=== PATIENT | male | born 1960 | race Caucasian/White ===

== ENCOUNTER 2022-08-07 09:17 | Outpatient (CLI) | payer BC, SELFPAY ==
--- NOTE | ~2022-08-07 | US_ITS ---
US abdomen limited INDICATION: Elevated liver function tests. PROCEDURE: Realtime right upper abdominal ultrasound. COMPARISON: No prior studies for comparison. FINDINGS: The pancreas is normal without focal mass or pancreatic ductal dilation. Liver echotexture is diffusely increased consistent with fatty infiltration. There is a liver cyst measuring 2.3 cm ma ximum dimension. There is normal directional flow in the portal vein. The gallbladder is normal without stones, gallbladder wall thickening or pericholecystic fluid. Comm on bile duct measures 4 mm. No sonographic Beth's sign. IMPRESSION: 1: Liver cyst measuring 2.3 cm maximum dimension. 2: Hepatic steatosis. Reviewed, dictated and finalized at location A. [employer]
== END 2022-08-07 09:18 | disposition home or self-care (01) ==
LOC: ANHIMG 09:21
PROVIDERS: PCP Family Medicine; Visit Provider Nurse Practitioner Family
DX: R74.01 Elevation of levels of liver transaminase levels (principal); Z68.34 Body mass index [BMI] 34.0-34.9, adult; K76.89 Other specified diseases of liver; K76.0 Fatty (change of) liver, not elsewhere classified
CPT/HCPCS: 76705

== ENCOUNTER 2025-05-08 14:25 | Inpatient (IN) | payer MEDICARE, OTHER, SELFPAY ==
[2025-05-08] VITALS (16 sets, daily range): BP systolic 82–140; BP diastolic 53–86; PULSE 66–91; RESP 12–20; TEMP 36.1–36.7; O2SAT 92–100; BMI 34.6
--- NOTE | ~2025-05-08 | CT_ITS ---
EXAMINATION: CT abdomen pelvis w con, 05/08/2025 16:30 CDT HISTORY: suspected strangulated hernia COMPARISON: No comparisons available. TECHNIQUE: CT scan of the abdomen and pelvis was performed with contrast. Isovue 300, 92cc injected IV. One or more of the following dose reduction techniques were used: automated exposure control, adjustment of the mA and/or kV according to patient size, use of iterative reconstruction technique. Unless otherwise stated, incidental findings do not require dedicated follow up imaging FINDINGS: CT abdomen: LUNG BASES: Calcified subcarinal and hilar lymph nodes in the visualized lung bases. LIVER: Minimal hepatic steatosis. Subcentimeter probable liver cysts. The main portal vein is patent. There is no intrahepatic biliary ductal dilatation. SPLEEN: Unremarkable, no splenomegaly. KIDNEYS: The largest level 3 x 3 mm, no hydronephrosis. Right Kidney: Right kidney renal calculi noted. Left Kidney: Left kidney simple-appearing renal cysts are also all 5 x 6 cm. ADRENAL GLANDS: Unremarkable. PANCREAS: Unremarkable. GALLBLADDER/BILIARY: Gallbladder appears contracted. STOMACH AND ESOPHAGUS: The stomach is decompressed. BOWEL/MESENTERY: There is thickening of the sigmoid colon without inflammatory changes noted along the left lateral aspect with no perforation or abscess. The remaining large bowel demonstrates moderate fecal content with diverticulosis. Appendix not identified. There are fluid-filled loops of small bowel with some minimally dilated small bowel loops adjacent to the anterior abdominal wall, The largest measuring 3.2 cm. ADENOPATHY/RETROPERITONEUM: No lymphadenopathy. AORTA/VASCULATURE: Normal caliber aorta. FREE FLUID OR FREE AIR: Trace free fluid.. CT pelvis: SOLID ORGANS/REPRODUCTIVE: Prostate enlarged with a heterogeneous appearance, correlate with PSA and prostate ultrasound. BLADDER: Within normal limits. OSSEOUS STRUCTURES: Moderate degenerative changes lumbar spine. No sclerotic or lytic lesions. OVERLYING SOFT TISSUES: There is an umbilical hernia containing multiple small bowel loops with fluid noted in the hernia sac although there is no gross bowel wall thickening, tiny area 1 mm of lucency noted, this is too small to characterize however minimal pneumatosis images difficult to exclude, the Defect in the abdominal wall 1 cm. There is a small fat-containing right inguinal hernia. Moderate fat-containing left inguinal hernia. IMPRESSION: 1. Acute diverticulitis. There is no perforation or abscess. 2. Ventral hernia containing small bowel and small amount of fluid and a tiny questionable area of pneumatosis. Correlation for early incarceration is recommended. There are some mildly dilated proximal small bowel loops within the abdomen, early small bowel obstruction is not excluded. 3. Incidental findings above Reviewed, dictated and finalized at location A. IMPRESSION: 1. Acute diverticulitis. There is no perforation or abscess. 2. Ventral hernia containing small bowel and small amount of fluid and a tiny q uestionable area of pneumatosis. Correlation for early incarceration is recomme nded. There are some mildly dilated proximal small bowel loops within the abdom en, early small bowel obstruction is not excluded. 3. Incidental findings above
--- NOTE | 2025-05-08 15:46 | ED_ITS ---
HPI - Abdominal Pain General Chief Complaint: Abdominal Pain Stated Complaint: abd. pain for several months Time Seen by Provider: 05/08/25 15:37 History of Present Illness HPI narrative: This is a 65-year-old male with history of hypertension, hyperlipidemia, ruptured appendicitis complicated by gangrene and subsequent partial colectomy who presents to the ED for abdominal pain. Patient states that for the past several years, he has been with a hernia. He is currently scheduled to have this evaluated the CT and by a surgeon. He states that earlier today, he had a hard bowel which strain. At about 10:30 a.m., he began to have hardening of the hernia and some skin changes and has had worsening pain since then. Related Data Home Medications ?Medication ?Instructions ?Recorded ?Confirmed ?Last Taken ?Type coenzyme Q10 10 mg capsule (Co 10 mg PO ONCE 06/17/23 05/08/25 Unknown History Q-10) magnesium 200 mg tablet 200 mg PO DAILY 06/17/23 Unknown History Allergies Allergy/AdvReac Type Severity Reaction Status Date / Time No Known Allergies Allergy Unknown Verified 05/08/25 17:33 Review of Systems 2 Review of Systems: Gen.: Denies fevers or chills Eyes: Denies eye pain or visual change ENT: Denies congestion Respiratory: Denies shortness of breath or cough CV: Denies chest pain or palpitations GI: As per HPI denies burning, urgency, frequency or hematuria Musculoskeletal: Denies back pain or muscle pain Neuro: Denies numbness, tingling, weakness or focal weakness Skin: Denies rash Except as documented, all other systems reviewed and negative [facility] Past Medical History Medical History (Updated 05/08/25 @ 19:24 by Glenn Fuentes MD) Screening PSA (prostate specific antigen) Screening for thyroid disorder Irregular heart beat CAROL (obstructive sleep apnea) needs to be tested Hypertension Hyperlipidemia Colon cancer screening Surgical History Surgical History (Updated 05/08/25 @ 17:35 by Jameel Morel DO) History of appendectomy Family History Family History Father Hypertension Family history of coronary artery disease Mother Hypertension Diabetes mellitus Cerebrovascular accident Grandparent Hypertension Cerebrovascular accident Sibling Rheumatoid arthritis Hypertension Hyperlipidemia Other Family history of lung cancer Social History Social History Smoking packs per day: 0.75 Smoking cigarettes per day: 15.0 Years smoked: 40 Smoking pack-years: 30.00 Smoking status: Former smoker Tobacco type: cigarettes Second hand tobacco smoke exposure: Yes Alcohol intake: current Drinks per week: 10 Substance use: never Substance use type: does not use Do You Feel Safe in your Home?: Yes Lack of Transportation: No Lack of Food: Never True Current Housing: I Have Housing Concerned About Future Housing: No Difficulty Paying Gas/Electric Bills: No Difficulty Paying for Meds: No Currently Unemployed: No Education: High School Diploma/GED Difficulty w/ Childcare or Family Care: No Living arrangements: with family Occupation/Education: retired 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 CARDIOVASCULAR: Regular rate and rhythm without murmurs rubs or gallops. ABDOMINAL: Umbilical hernia with blackened overlying skin changes, significant firmness and tenderness to palpation MUSCULOSKELETAL: Moves all extremities. No clubbing, cyanosis or edema. NEURO: Awake and alert. Following commands, speech normal, no focal deficits SKIN:: Warm, dry. No rashes lesions or abrasions PSYCHIATRIC: Normal affect/mood, Course Vital Signs Vital signs: Vital Signs Temperature 97.9 F 05/08/25 14:40 Pulse Rate 89 05/08/25 14:40 Respiratory Rate 16 05/08/25 14:40 Blood Pressure 140/84 05/08/25 14:40 Pulse Oximetry 98 05/08/25 14:40 Oxygen Delivery Room Air 05/08/25 14:40 Temperature 98.0 F 05/08/25 18:42 Pulse Rate 88 05/08/25 19:15 Respiratory Rate 16 05/08/25 19:15 Blood Pressure 103/61 05/08/25 19:15 Pulse Oximetry 96 05/08/25 19:15 Oxygen Delivery Room Air 05/08/25 19:15 Oxygen Flow Rate 10 05/08/25 19:00 MDM - Abdominal Pain MDM Narrative Medical decision making narrative: 65-year-old male with history of complicated appendectomy who presented to the ED for abdominal. On initial evaluation, patient did have a umbilical hernia with just a appearing scan concerning for a strangulated hernia. Leukocytosis at 13.5. I discussed case with surgery, Dr. Morel agrees that this does clinically sound like a strangulated hernia normal humeral prep the OR awaiting the CT results. CT on my evaluation did show he hernia with small contained concerning for strangulation. Patient was taken to OR and in otherwise stable condition. Differential Diagnosis Differential diagnosis: Likely other (strangulated vs incarcerated hernia, cellulitis) Medical Records Attestation: I reviewed the patient's medical records. Lab Data Attestation: I reviewed the patient's lab results. 05/08/25 15:43 05/08/25 15:43 Labs: Lab Results 05/08/25 05/08/25 Range/Units 15:43 16:02 WBC 13.5 H (4.5-10.0) K/mm3 RBC 5.51 (4.6-6.20) M/mm3 Hgb 15.5 (14.0-18.0) g/dL Hct 46.1 (42.0-52.0) % MCV 83.7 (80-100) fl MCH 28.1 (26-34) pg MCHC 33.6 (32-36) g/dl RDW 13.5 (11.5-14.5) % Plt Count 190 (150-375) k/mm3 MPV 10.4 (7.4-10.4) fl Immature Gran % (Auto) 0.4 (0-0.5) % Neut % (Auto) 61.4 (45.5-73.1) % Lymph % (Auto) 24.8 (18.3-44.2) % [place] % (Auto) 12.1 H (2.6-8.5) % Eos % (Auto) 1.0 (0-4.4) % Baso % (Auto) 0.3 (0.2-1.2) % Lymph # (Auto) 3.35 H (0.9-3.2) K/mm3 [place] # (Auto) 1.6 H (0.1-0.6) K/mm3 Eos # (Auto) 0.1 (0-0.3) K/mm3 Baso # (Auto) 0.0 (0.0-0.1) K/mm3 Abs Immat Gran (auto) 0.05 H (0.00-0.031) K/mm3 Absolute Neuts (auto) 8.3 H (1.3-6.7) K/mm3 Absolute Nucleated RBC 0.000 (0.0-0.012) K/mm3 Nucleated RBC % 0.0 (0.0-0.2) % Sodium 136 L (137-145) mmol/L Potassium 3.4 (3.4-5.0) mmol/L Chloride 101 (98-107) mmol/L Carbon Dioxide 24 (22-30) mmol/L Anion Gap 11 (4-12) mmol/L BUN 23 H (9-20) mg/dL Creatinine 0.91 (0.7-1.3) mg/dL Estim Creat Clear Calc Not Reportable Estimated GFR > 60 (59 - ) Glucose 128 H (65-110) mg/dL Calcium 9.6 (8.4-10.2) mg/dL Total Bilirubin 1.1 (0.2-1.3) mg/dL AST 28 (17-59) U/L ALT 24 (6-50) U/L Alkaline Phosphatase 63 (38-126) U/L Total Protein 7.7 (6.3-8.2) g/dL Albumin 4.4 (3.5-5.1) g/dL Lipase 62 (23-300) U/L Urine Color Yellow (Yellow) Urine Appearance Cloudy H (Clear) Urine pH 6.0 (5.0-9.0) Ur Specific [place] 1.023 (1.001-1.035) Urine Protein Negative (Negative) mg/dL Urine Glucose (UA) Negative (Negative) mg/dL Urine Ketones Trace H (Negative) mg/dL Ur Blood (Man) Negative (Negative) Urine Nitrate Negative (Negative) Urine Bilirubin Negative (Negative) Urine Urobilinogen 0.2 (<2.0) mg/dL Leukocyte Esterase Rfl Trace H (Negative) PITO/UL Urine RBC 0-2 (0-2) /hpf Urine WBC 0-5 (0-3) /hpf Ur Squamous Epith Cells None seen (Few) /hpf Urine Bacteria None seen /hpf Urine Casts 0-2 Imaging Data Radiologist's impression: ITS Impressions Abdomen/Pelvis CT 05/08/25 16:51 IMPRESSION: 1. Acute diverticulitis. There is no perforation or abscess. 2. Ventral hernia containing small bowel and small amount of fluid and a tiny questionable area of pneumatosis. Correlation for early incarceration is recommended. There are some mildly dilated proximal small bowel loops within the abdomen, early small bowel obstruction is not excluded. 3. Incidental findings above Discharge Plan Discharge Clinical Impression: Strangulated umbilical hernia Patient Disposition: Still a Patient Condition: Serious
[2025-05-08 15:51] LABS: Hematocrit 46.1 % (42.0-52.0); Hemoglobin 15.5 g/dL (14.0-18.0); Immature Granulocyte Percent A 0.4 % (0-0.5); Lymphocytes Absolute Auto 3.35 K/mm3 (0.9-3.2); Mean Corpuscular HGB Conc 33.6 g/dl (32-36); Mean Corpuscular Hemoglobin 28.1 pg (26-34); Mean Corpuscular Volume 83.7 fl (80-100); Nucleated Red Blood Cells Absolute Auto 0.000 K/mm3 (0.0-0.012); Nucleated Red Blood Cells Perc 0.0 % (0.0-0.2); Platelet Count Result 190 k/mm3 (150-375); Red Blood Count 5.51 M/mm3 (4.6-6.20); White Blood Count 13.5 K/mm3 (4.5-10.0)
[2025-05-08] MEDS: ONDANSETRON INJ 4 MG/2 ML VIAL IV PUSH (15:55)
[2025-05-08] MEDS: HYDROmorphone HCL INJ (*CRX) 1 MG/ML SYR 0.5 MG IV PUSH ×2 (15:55→16:28)
[2025-05-08] MEDS: SODIUM CHLORIDE 0.9% IV 1,000 ML 999 ML IV CONT (15:56)
[2025-05-08 16:04] LABS: Alanine Aminotransferase 24 U/L (6-50); Albumin Level 4.4 g/dL (3.5-5.1); Alkaline Phosphatase 63 U/L (38-126); Anion Gap 11 mmol/L (4-12); Aspartate Amino Transferase 28 U/L (17-59); Bilirubin,Total 1.1 mg/dL (0.2-1.3); Blood Urea Nitrogen 23 mg/dL (9-20); Calcium 9.6 mg/dL (8.4-10.2); Carbon Dioxide 24 mmol/L (22-30); Chloride 101 mmol/L (98-107); Estimated Glomerular Filt Rate > 60; Glucose 128 mg/dL (65-110); Lipase 62 U/L (23-300); Potassium 3.4 mmol/L (3.4-5.0); Sodium 136 mmol/L (137-145); Total Protein 7.7 g/dL (6.3-8.2)
[2025-05-08 16:12] LABS: Add Urine Microscopic? YES; Appearance Urine Cloudy (Clear); Glucose Urine UA Negative (Negative); Leukocyte Esterase Ur Trace LEU/UL (Negative); Nitrate Urine Negative (Negative); Non Pathogenic Casts 0-2; Specific Grav Ur 1.023 (1.001-1.035)
--- NOTE | 2025-05-08 17:10 | P.PNAN_ITS ---
Anes - Initial Pre Proc Eval Procedure: Operation Date: 05/08/25 17:30 Proposed Procedures p Open Incarcerated Hernia Repair, Possible Small Bowel Resection - Jameel Morel DO Date/Time: 05/08/25 17:10 Surgeon: Jameel Morel DO Pre Op Diagnosis: abd. pain for several months Patient Data Age: 65 Gender: M Height: Weight: 112.1 kg Last Vital Signs Temp 36.5 C 05/08/25 15:29 Pulse 89 05/08/25 16:56 Resp 17 05/08/25 16:56 BP 119/78 05/08/25 16:56 Pulse Ox 97 05/08/25 16:56 O2 Del Method Room Air 05/08/25 14:40 Allergies Allergy/AdvReac Type Severity Reaction Status Date / Time No Known Allergies Allergy Unknown Verified 05/08/25 15:42 Home Medications ?Medication ?Instructions ?Recorded ?Confirmed ?Type aspirin 81 mg tablet,delayed 81 mg PO DAILY #1 tablet 05/21/22 04/25/25 Rx release nujzfetd-rpz-hhnhp 200 mcg-lycop 1 tablet PO DAILY #1 tablet 05/21/22 04/25/25 Rx 175 mcg-lutei 250 mcg-herb 178 tablet (Sang Multivitamin For Men) omega-3 fatty acids 500 mg capsule 500 mg PO DAILY #1 cap 05/21/22 04/25/25 Rx coenzyme Q10 10 mg capsule (Co 10 mg PO ONCE 06/17/23 04/25/25 History Q-10) magnesium 200 mg tablet 200 mg PO DAILY 06/17/23 History hydrochlorothiazide 25 mg tablet 25 mg PO DAILY #90 ta bs 01/28/25 04/25/25 Rx losartan 50 mg tablet See Rx Instructions .Route 0 02/02/25 04/25/25 Rx .COMPLEX #180 tabs metoprolol succinate 50 mg See Rx Instructions .Route 04/25/25 04/25/25 Rx tablet,extended release 24 hr .COMPLEX #180 tabs rosuvastatin 10 mg tablet See Rx Instructions .Route 0 04/25/25 04/25/25 Rx .COMPLEX #90 tabs Laboratory Tests 05/08/25 05/08/25 15:43 16:02 WBC 13.5 H K/mm3 (4.5-10.0) RBC 5.51 M/mm3 (4.6-6.20) Hgb 15.5 g/dL (14.0-18.0) Hct 46.1 % (42.0-52.0) MCV 83.7 fl (80-100) MCH 28.1 pg (26-34) MCHC 33.6 g/dl (32-36) RDW 13.5 % (11.5-14.5) Plt Count 190 k/mm3 (150-375) MPV 10.4 fl (7.4-10.4) Immature Gran % (Auto) 0.4 % (0-0.5) Neut % (Auto) 61.4 % (45.5-73.1) Lymph % (Auto) 24.8 % (18.3-44.2) [place] % (Auto) 12.1 H % (2.6-8.5) Eos % (Auto) 1.0 % (0-4.4) Baso % (Auto) 0.3 % (0.2-1.2) Lymph # (Auto) 3.35 H K/mm3 (0.9-3.2) [place] # (Auto) 1.6 H K/mm3 (0.1-0.6) Eos # (Auto) 0.1 K/mm3 (0-0.3) Baso # (Auto) 0.0 K/mm3 (0.0-0.1) Abs Immat Gran (auto) 0.05 H K/mm3 (0.00-0.031) Absolute Neuts (auto) 8.3 H K/mm3 (1.3-6.7) Absolute Nucleated RBC 0.000 K/mm3 (0.0-0.012) Nucleated RBC % 0.0 % (0.0-0.2) Sodium 136 L mmol/L (137-145) Potassium 3.4 mmol/L (3.4-5.0) Chloride 101 mmol/L (98-107) Carbon Dioxide 24 mmol/L (22-30) Anion Gap 11 mmol/L (4-12) BUN 23 H mg/dL (9-20) Creatinine 0.91 mg/dL (0.7-1.3) Estim Creat Clear Calc Not Reportable Estimated GFR > 60 (59 - ) Glucose 128 H mg/dL (65-110) Calcium 9.6 mg/dL (8.4-10.2) Total Bilirubin 1.1 mg/dL (0.2-1.3) AST 28 U/L (17-59) ALT 24 U/L (6-50) Alkaline Phosphatase 63 U/L (38-126) Total Protein 7.7 g/dL (6.3-8.2) Albumin 4.4 g/dL (3.5-5.1) Lipase 62 U/L (23-300) Urine Color Yellow (Yellow) Urine Appearance Cloudy H (Clear) Urine pH 6.0 (5.0-9.0) Ur Specific [place] 1.023 (1.001-1.035) Urine Protein Negative mg/dL (Negative) Urine Glucose (UA) Negative mg/dL (Negative) Urine Ketones Trace H mg/dL (Negative) Ur Blood (Man) Negative (Negative) Urine Nitrate Negative (Negative) Urine Bilirubin Negative (Negative) Urine Urobilinogen 0.2 mg/dL (<2.0) Leukocyte Esterase Rfl Trace H PITO/UL (Negative) Urine RBC 0-2 /hpf (0-2) Urine WBC 0-5 /hpf (0-3) Ur Squamous Epith Cells None seen /hpf (Few) Urine Bacteria None seen /hpf Urine Casts 0-2 Patient hx anesthesia problems: none Family hx anesthesia problems: none Results Review: All pre-operative results and documents have been reviewed as part of the pre- operative evaluation. [facility] Past Medical History Medical History Screening PSA (prostate specific antigen) Screening for thyroid disorder Irregular heart beat CAROL (obstructive sleep apnea) needs to be tested Hypertension Hyperlipidemia Colon cancer screening Surgical History Surgical History History of colon resection History of appendectomy Family History Family History Father Hypertension Family history of coronary artery disease Mother Hypertension Diabetes mellitus Cerebrovascular accident Grandparent Hypertension Cerebrovascular accident Sibling Rheumatoid arthritis Hypertension Hyperlipidemia Other Family history of lung cancer Social History Social History Smoking packs per day: 0.75 Smoking cigarettes per day: 15.0 Years smoked: 40 Smoking pack-years: 30.00 Smoking status: Former smoker Tobacco type: cigarettes Second hand tobacco smoke exposure: Yes Alcohol intake: current Drinks per week: 10 Substance use: never Substance use type: does not use Do You Feel Safe in your Home?: Yes Lack of Transportation: No Lack of Food: Never True Current Housing: I Have Housing Concerned About Future Housing: No Difficulty Paying Gas/Electric Bills: No Difficulty Paying for Meds: No Currently Unemployed: No Education: High School Diploma/GED Difficulty w/ Childcare or Family Care: No Living arrangements: with family Occupation/Education: retired 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 Informed Consent: The patient's anesthetic plan and its attendant risks and benefits were discussed with the patient/family/POA. Questions were solicited and answers provided to the satisfaction of the patient/family/POA.
--- NOTE | 2025-05-08 17:33 | WPDHPUPDATE1 ---
History and Physical Update Update Date/Time: 05/08/25 17:33 History and Physical has been reviewed, including an updated exam of the patient. There are NO changes in the patient's condition. Risks, benefits, and alternatives have been discussed and questions answered. Patient agrees to proceed with procedure.
--- NOTE | 2025-05-08 17:33 | PM.IMHP ---
H&P: HPI History of Present Illness Date/Time: 05/08/25 17:33 Chief Complaint: Incarcerated umbilical hernia Narrative: This is a 65-year-old man who presented to the emergency department with periumbilical pain. He has a known history of an umbilical hernia and has been causing him more symptoms over the past several weeks. It has always been soft and reducible. This morning it became hard and painful and he was unable to reduce it. He was also experiencing bloating and cramping pain as well as some nausea. Presented to the emergency department this afternoon. CT has been done and is showing evidence of an incarcerated umbilical hernia containing a loop of small bowel. Review of Systems Review of Systems: All systems reviewed & are unremarkable except as noted in HPI and below Constitutional: Constitutional: Denies chills, Denies fever(s), Denies headache(s) and Denies weight loss Eyes: Eyes: Denies change in vision ENT: Denies dizziness, Denies headache(s), Denies neck mass and Denies throat swelling Cardiovascular: Cardiovascular: Denies chest pain, Denies lightheadedness and Denies dyspnea Respiratory: Respiratory: Denies cough, Denies dyspnea and Denies wheezing Gastrointestinal: Gastrointestinal: Reports as per HPI Genitourinary: Genitourinary: Denies hematuria and Denies dysuria Musculoskeletal: Musculoskeletal: Reports as per HPI Integumentary/Breasts: Skin/Breast: Reports as per HPI Neurologic: Denies dizziness and Denies headache(s) Allergic/Immunologic: Allergic/Immunologic: Denies throat swelling and Denies wheezing PMF Past Medical History Medical History (Updated 05/08/25 @ 17:37 by Jameel Morel DO) Screening PSA (prostate specific antigen) Screening for thyroid disorder Irregular heart beat CAROL (obstructive sleep apnea) needs to be tested Hypertension Hyperlipidemia Colon cancer screening Surgical History Surgical History (Updated 05/08/25 @ 17:35 by Jameel Morel DO) History of appendectomy Family History Family History Father Hypertension Family history of coronary artery disease Mother Hypertension Diabetes mellitus Cerebrovascular accident Grandparent Hypertension Cerebrovascular accident Sibling Rheumatoid arthritis Hypertension Hyperlipidemia Other Family history of lung cancer Social History Social History Smoking packs per day: 0.75 Smoking cigarettes per day: 15.0 Years smoked: 40 Smoking pack-years: 30.00 Smoking status: Former smoker Tobacco type: cigarettes Second hand tobacco smoke exposure: Yes Alcohol intake: current Drinks per week: 10 Substance use: never Substance use type: does not use Do You Feel Safe in your Home?: Yes Lack of Transportation: No Lack of Food: Never True Current Housing: I Have Housing Concerned About Future Housing: No Difficulty Paying Gas/Electric Bills: No Difficulty Paying for Meds: No Currently Unemployed: No Education: High School Diploma/GED Difficulty w/ Childcare or Family Care: No Living arrangements: with family Occupation/Education: retired 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[employer] Gender identity (if verbalized by the patient): Male Meds Home Medications and Allergies Home Medications ?Medication ?Instructions ?Recorded ?Confirmed ?Type aspirin 81 mg tablet,delayed 81 mg PO DAILY #1 tablet 05/21/22 05/08/25 Rx release vjryrrpe-wpz-tuzmk 200 mcg-lycop 1 tablet PO DAILY #1 tablet 05/21/22 05/08/25 Rx 175 mcg-lutei 250 mcg-herb 178 tablet (Sang Multivitamin For Men) omega-3 fatty acids 500 mg capsule 500 mg PO DAILY #1 cap 05/21/22 05/08/25 Rx coenzyme Q10 10 mg capsule (Co 10 mg PO ONCE 06/17/23 05/08/25 History Q-10) magnesium 200 mg tablet 200 mg PO DAILY 06/17/23 05/08/25 History hydrochlorothiazide 25 mg tablet 25 mg PO DAILY #90 tabs 01/28/25 05/08/25 Rx losartan 50 mg tablet See Rx Instructions .Route 02/02/25 05/08/25 Rx .COMPLEX #180 tabs metoprolol succinate 50 mg See Rx Instructions .Route 04/25/25 05/08/25 Rx tablet,extended release 24 hr .COMPLEX #180 tabs rosuvastatin 10 mg tablet See Rx Instructions .Route 04/25/25 05/08/25 Rx .COMPLEX #90 tabs Allergies Allergy/AdvReac Type Severity Reaction Status Date / Time No Known Allergies Allergy Unknown Verified 05/08/25 17:33 Vital Signs Vital Signs - 24 hr 05/08/25 14:40 05/08/25 15:29 05/08/25 16:02 Temperature 97.9 F 97.7 F Pulse Rate 89 70 66 Respiratory Rate 16 12 12 Blood Pressure 140/84 96/60 L 116/77 Pulse Oximetry 98 100 99 Oxygen Delivery Room Air 05/08/25 16:56 Temperature Pulse Rate 89 Respiratory Rate 17 Blood Pressure 119/78 Pulse Oximetry 97 Oxygen Delivery Exam Const: General: no acute distress and alert Orientation/consciousness: patient oriented x3 HENMT: Head: normocephalic and atraumatic Ears: hearing grossly normal bilaterally Face/Nose/Sinus: Normal nares present Mouth: Yes Normal oral and palatal mucosa present Eyes: Periorbital: periorbital findings normal Sclera: sclerae normal EOM: EOMs intact bilaterally Neck: Neck: normal visual inspection, no lymphadenopathy and trachea midline Chest: Chest palpation & inspection: normal inspection of the chest Resp: Effort & Inspection: normal respiratory effort Auscultation: clear to auscultation bilaterally Cardio: Jugular venous distension: no JVD Rate: regular rate Rhythm: regular rhythm Heart sounds: S1 normal heart sound present and S2 normal heart sound present Peripheral pulses: Peripheral pulses 2+ throughout GI: Inspection: normal to inspection GI Palp: Yes Soft to palpation, Yes Tenderness to palpation present (GI) (Periumbilical), No Guarding due to palpation present (GI), Yes Hernia present umbilical 3-10 cm (Incarcerated umbilical hernia with skin ecchymosis) and No Rebound tenderness present Percussion: Yes normal to percussion Auscultation: normal bowel sounds : General: Yes no CVA tenderness Back/Spine/Pelvis: Back: no CVA tenderness Neuro: General: patient oriented x3, no focal motor deficits and CN's II-XI intact bilaterally Cognition (Neuro): normal cognition Speech: normal speech Motor exam (neuro): 5/5 motor strength present throughout Extrem: General: capillary refill normal and no clubbing, cyanosis or edema H&P: Results Labs Labs: Short CBC 05/08/25 Range/Units 15:43 WBC 13.5 H (4.5-10.0) K/mm3 Hgb 15.5 (14.0-18.0) g/dL Hct 46.1 (42.0-52.0) % Plt Count 190 (150-375) k/mm3 [facility] 05/08/25 15:43 Sodium 136 L Potassium 3.4 Chloride 101 Carbon Dioxide 24 BUN 23 H Creatinine 0.91 Glucose 128 H Calcium 9.6 Liver Function 05/08/25 Range/Units 15:43 Total Bilirubin 1.1 (0.2-1.3) mg/dL AST 28 (17-59) U/L ALT 24 (6-50) U/L Alkaline Phosphatase 63 (38-126) U/L Albumin 4.4 (3.5-5.1) g/dL Urine 05/08/25 Range/Units 16:02 Urine Color Yellow (Yellow) Urine Appearance Cloudy H (Clear) Urine pH 6.0 (5.0-9.0) Ur Specific [place] 1.023 (1.001-1.035) Urine Protein Negative (Negative) mg/dL Urine Glucose (UA) Negative (Negative) mg/dL Imaging CT scan - abdomen: Radiologist's impression: ITS Impressions Abdomen/Pelvis CT 05/08/25 16:51 IMPRESSION: 1. Acute diverticulitis. There is no perforation or abscess. 2. Ventral hernia containing small bowel and small amount of fluid and a tiny questionable area of pneumatosis. Correlation for early incarceration is recommended. There are some mildly dilated proximal small bowel loops within the abdomen, early small bowel obstruction is not excluded. 3. Incidental findings above Assessment and Plan Assessment and plan (1) Incarcerated umbilical hernia: Code(s): K42.0 - Umbilical hernia with obstruction, without gangrene Status: Acute Assessment and Plan: I have reviewed the CT and discussed the findings the patient. He has evidence of an incarcerated umbilical hernia containing bowel. Recommended emergent open incarcerated umbilical hernia repair, possible bowel resection. I discussed the procedure, risks, benefits, and alternatives. Questions were answered. Patient will likely be admitted postoperatively for recovery. (2) Diverticulitis large intestine w/o perforation or abscess w/o bleeding: Code(s): K57.32 - Diverticulitis of large intestine without perforation or abscess without bleeding Status: Acute (3) Hypertension: Qualifiers: Hypertension type: essential hypertension Qualified Code(s): I10 - Essential (primary) hypertension Code(s): I10 - Essential (primary) hypertension Status: Acute (4) CAROL (obstructive sleep apnea): Code(s): G47.33 - Obstructive sleep apnea (adult) (pediatric) Status: Acute Hospitalist MIPS Medication Reconciliation I have utilized all available resources to obtain, update and review the patients current medications (includes all prescriptions, OTC, herbals, cannabis, and nutritional supplements).: Yes
[2025-05-08] MEDS: ceFAZolin 2 GM in SODIUM CHLORIDE 0.9% IV 50 ML 100 ML IVPB (17:34)
[2025-05-08] MEDS: BUPIVACAINE/EPINEPHRINE 0.5% 50 ML VIAL 20 ML INFILTRATE (17:49)
--- NOTE | 2025-05-08 17:59 | S_PTH ---
PATIENT: Donavon Espinoza LOC: [id number] U#:[id number] AGE/SX: 65/M ROOM: 325 RE05/08/[address]: Jameel Morel DO : 1960 BED: 02 DIS: 05/11/2025 SPEC #: [id number] RECD: 05/09/25 10:15 STATUS: PATI STEVENS #: [id number] RAI: 05/08/25 17:[address]: Jameel Morel DEPT: [facility] Surgical RECD BY: La Samuels ENTERED: 05/09/25 10:15 SP TYPE: Surgical OTHR DR: Reece Clemente MD Tissues: A - Hernia Sac Procedures: Gross and Microscopic Level 2 Hematoxylin and Eosin Stain
--- NOTE | 2025-05-08 18:37 | W.PM.PROC2 ---
Procedure Note - Detailed Date of Procedure 05/08/25 Pre-op Diagnosis Incarcerated umbilical hernia, diverticulitis without perforation or abscess Post-op Diagnosis Same (Incarcerated 3 cm umbilical hernia) Procedure Performed Open incarcerated 3 cm umbilical hernia repair Surgeon Jameel Morel, DO Anesthesia General and Local (0.5% bupivacaine with epinephrine) Indications This is a 65-year-old man who presented to the emergency department today with periumbilical pain and swelling. He has a known history of an umbilical hernia that has had tenderness at times but was previously reducible. Today in the emergency department he was found to have an incarcerated umbilical hernia with some purplish discoloration of the skin concerning for possible strangulation. This was unable to be reduced with palpation. A CT abdomen pelvis showed evidence of an incarcerated umbilical hernia containing a loop of small bowel as well as signs of diverticulitis. Discussions were made with the patient about treatment options and decision was made to proceed with incarcerated umbilical hernia repair, possible bowel resection. Findings Incarcerated umbilical hernia repair was performed. The patient was found to have a 3 cm incarcerated umbilical hernia containing a loop of small bowel. The small bowel appeared very dark initially when the hernia sac was opened. The fascia on the inferior edge of the hernia defect was extended about 5 mm to allow the bowel to reduce. The bowel was then inspected after several minutes and the color seem to be improving. There was no evidence of necrotic bowel or perforation on careful exam. I then inspected the bowel about 10 minutes later and it still appeared to be continuing to improve back to normal color. There did not appear to be any signs of irreversible ischemic changes. The remainder of the abdomen was inspected where I could through that small hernia opening, and no other abnormalities were noted. The hernia was repaired using 0 PDS running suture in a vertical fashion. The hernia sac was excised and sent to the lab for pathology. Description of Procedure Procedure as well as risks, benefits and alternatives were discussed with the patient. Written consent was obtained and placed in chart prior to procedure. Patient was brought back to surgical suite. He was placed supine on operating table. Time-out was done to confirm patient and procedure. He was then intubated by the anesthesia department. His abdomen was prepped and draped in sterile fashion using chlorhexidine prep. A 6 cm curvilinear incision was made just inferior to the umbilicus using a 10 blade scalpel. Electrocautery was used for hemostasis and for dissection through the subcutaneous tissue. The hernia sac was encountered and dissection was carried out around the hernia sac all the way down to the level of the fascia. The linea alba was then incised just inferior to the hernia defect using electrocautery. This was extended about 0.5 cm inferior to allow the fascia to open up enough to reduce the bowel. I then opened the hernia sac using electrocautery and carefully inspected the bowel. There was some dark red discoloration to the loop of small bowel but it did not appear to be necrotic. The bowel was reduced back down into the abdominal cavity. The hernia sac was then carefully dissected free from the umbilical skin and the surrounding subcutaneous attachments and then the hernia sac was excised and sent to the lab for pathology. The fascia was then cleared circumferentially around the hernia defect and the umbilical stalk was lifted off of the fascia using electrocautery. I also extended the incision along the linea alba just cephalad to the hernia defect for about 0.5 cm. The hernia defect itself was measuring 3 cm. After completing all this and before closing the fascia I then inspected the small bowel 1 final time. The bowel appeared to be regaining normal color and there appeared to be no evidence of irreversible ischemic changes or necrosis. The hernia defect was then closed using 0 PDS running absorbable suture starting from each end and meeting in the middle. The subcutaneous area was then irrigated with sterile saline. 0.5% bupivacaine with epinephrine was infiltrated locally around the fascia and subcutaneous space. The umbilical skin was then reapproximated to the fascia using a 3-0 Vicryl simple interrupted suture. The deep dermis and Cherri's fascia was reapproximated using 3-0 Vicryl simple interrupted sutures. The skin edges were reapproximated using 4-0 Monocryl running subcuticular suture. Exofin glue was then applied on top. The patient was then awakened from anesthesia, extubated, and transferred to recovery. Estimated Blood Loss 10 Pathology Yes (Hernia sac) Complications No immediate complications Condition Stable Disposition Floor [facility] Billing Surgery - Charge Forward: Surgery Billing
[2025-05-08] MEDS: LACTATED RINGERS 1,000 ML 30 ML IV CONT ×2 (18:42)
[2025-05-08] MEDS: LACTATED RINGERS 1,000 ML 100 ML IV CONT (20:30)
[2025-05-08] MEDS: PIPERACILLIN/TAZOBACTAM SOD 3.375 GM in SODIUM CHLORIDE 0.9% IV 50 ML 100 ML IVPB (20:34)
--- NOTE | 2025-05-08 21:06 | ADMGEN ---
This patient, Donavon Espinoza, was admitted to [facility] Surg Room 325-01. Patient/family oriented to hospital policies and general routines including ID bracelet, bed and alarms, visiting hours, pain management, procedures, bathroom and other care routines, personal items, smoking policy, room service/diet, and visiting hours. Information on how to activate the Rapid Response Team has been discussed. Patient/Family are encouraged to report perceived risks to care and to ask questions if they do not understand what they are told or what they should do.
[2025-05-09] VITALS (10 sets, daily range): BP systolic 98–117; BP diastolic 58–74; PULSE 72–88; RESP 13–18; TEMP 36.1–36.6; O2SAT 94–99
[2025-05-09] MEDS: PIPERACILLIN/TAZOBACTAM SOD 3.375 GM in SODIUM CHLORIDE 0.9% IV 50 ML 100 ML IVPB ×4 (02:25→21:15)
[2025-05-09 06:23] LABS: Hematocrit 44.0 % (42.0-52.0); Hemoglobin 14.6 g/dL (14.0-18.0); Mean Corpuscular HGB Conc 33.2 g/dl (32-36); Mean Corpuscular Hemoglobin 28.6 pg (26-34); Mean Corpuscular Volume 86.3 fl (80-100); Platelet Count Result 170 k/mm3 (150-375); Red Blood Count 5.10 M/mm3 (4.6-6.20); White Blood Count 14.4 K/mm3 (4.5-10.0)
[2025-05-09 06:55] LABS: Anion Gap 9 mmol/L (4-12); Blood Urea Nitrogen 21 mg/dL (9-20); Calcium 9.1 mg/dL (8.4-10.2); Carbon Dioxide 24 mmol/L (22-30); Chloride 103 mmol/L (98-107); Estimated CRCL calculation 101 ml/min; Estimated Glomerular Filt Rate > 60; Glucose 149 mg/dL (65-110); Potassium 4.2 mmol/L (3.4-5.0); Sodium 136 mmol/L (137-145)
--- NOTE | 2025-05-09 07:51 | WPDANESPN ---
Anes - Prog Note Post-Op Date/Time: 05/09/25 07:51 Cardiovascular status: normal Respiratory status: normal Airway patency: baseline Mental status: baseline Post-Op hydration status: normal Vital Signs: Last Vital Signs Temp 96.9 F L 05/09/25 03:28 Pulse 76 05/09/25 03:28 Resp 18 05/09/25 03:28 BP 100/58 L 05/09/25 03:28 Pulse Ox 94 05/09/25 03:28 O2 Del Method Room Air 05/08/25 20:00 O2 Flow Rate 10 05/08/25 19:00 Pain Score (VAS): 0/10 I/O: Intake & Output 05/08/25 05/08/25 05/09/25 15:59 23:59 07:59 Intake Total 1500 250 Output Total 400 700 Balance 1100 -450 Laboratory Tests 05/09/25 05:57 05/09/25 05:57 05/08/25 05/08/25 05/09/25 15:43 16:02 05:57 WBC 13.5 H 14.4 H RBC 5.51 5.10 Hgb 15.5 14.6 Hct 46.1 44.0 MCV 83.7 86.3 MCH 28.1 28.6 MCHC 33.6 33.2 RDW 13.5 13.6 Plt Count 190 170 MPV 10.4 10.8 H Immature Gran % (Auto) 0.4 Neut % (Auto) 61.4 Lymph % (Auto) 24.8 [place] % (Auto) 12.1 H Eos % (Auto) 1.0 Baso % (Auto) 0.3 Lymph # (Auto) 3.35 H [place] # (Auto) 1.6 H Eos # (Auto) 0.1 Baso # (Auto) 0.0 Abs Immat Gran (auto) 0.05 H Absolute Neuts (auto) 8.3 H Absolute Nucleated RBC 0.000 Nucleated RBC % 0.0 Sodium 136 L 136 L Potassium 3.4 4.2 Chloride 101 103 Carbon Dioxide 24 24 Anion Gap 11 9 BUN 23 H 21 H Creatinine 0.91 0.85 Estim Creat Clear Calc Not Reportable 101 Estimated GFR > 60 > 60 Glucose 128 H 149 H Calcium 9.6 9.1 Total Bilirubin 1.1 AST 28 ALT 24 Alkaline Phosphatase 63 Total Protein 7.7 Albumin 4.4 Lipase 62 Urine Color Yellow Urine Appearance Cloudy H Urine pH 6.0 Ur Specific [place] 1.023 Urine Protein Negative Urine Glucose (UA) Negative Urine Ketones Trace H Ur Blood (Man) Negative Urine Nitrate Negative Urine Bilirubin Negative Urine Urobilinogen 0.2 Leukocyte Esterase Rfl Trace H Urine RBC 0-2 Urine WBC 0-5 Ur Squamous Epith Cells None seen Urine Bacteria None seen Urine Casts 0-2 Post-procedural complaints: none Patient Feedback: Patient satisfied with anesthetic care.
[2025-05-09] MEDS: LACTATED RINGERS 1,000 ML 100 ML IV CONT (08:21)
[2025-05-09] MEDS: MAGNESIUM OXIDE 200 MG TABLET PO (08:23)
[2025-05-09] MEDS: ASPIRIN 81 MG ENTERIC TABLET PO (08:24)
[2025-05-09] MEDS: ROSUVASTATIN 10 MG TABLET PO (08:24)
[2025-05-09] MEDS: ENOXAPARIN 40 MG/0.4 ML SYRINGE SUB-Q (08:24)
--- NOTE | 2025-05-09 10:22 | P.PNGS_ITS ---
Progress Note: A&P Assessment and Plan (1) Incarcerated umbilical hernia: Code(s): K42.0 - Umbilical hernia with obstruction, without gangrene Status: Acute Assessment and Plan: * Pod 1 status post open incarcerated 3 cm umbilical hernia repair. Patient is doing very well. Ambulating without assistance. Voiding appropriately. Tolerating clear liquids without nausea or vomiting. Minimal pain, not requiring any pain medication. * Will advance diet to full liquids. * Continue to monitor with serial abdominal exams and labs. (2) Diverticulitis large intestine w/o perforation or abscess w/o bleeding: Code(s): K57.32 - Diverticulitis of large intestine without perforation or abscess without bleeding Status: Acute (3) Hypertension: Qualifiers: Hypertension type: essential hypertension Qualified Code(s): I10 - Essential (primary) hypertension Code(s): I10 - Essential (primary) hypertension Status: Acute Assessment and Plan: Soft BP this morning at 100/58. Per nursing staff, blood pressure medications were held. Pressure is normalizing. (4) CAROL (obstructive sleep apnea): Code(s): G47.33 - Obstructive sleep apnea (adult) (pediatric) Status: Acute Plan Discussed patient's case and plan of care with Dr. Morel. Subjective Subjective Date/Time Seen: 05/09/25 10:22 Post Op day: 1 (Open incarcerated 3 cm umbilical hernia repair) Patient reports: tolerating liquids well and flatus Interval history: Patient is doing well today. Up in chair upon visit. Minimal pain, not requiring any medication. Passing flatus. Voiding appropriately. Tolerating clears without any nausea or vomiting. Patient was slightly hypotensive this morning, so blood pressure medications were held. WBC slightly elevated 14.4, likely postop reaction. Exam Const: General: comfortable and no acute distress GI: Inspection: non-distended GI Palp: Yes Soft to palpation, Yes Tenderness to palpation present (GI) (Minimal) and No Guarding due to palpation present (GI) Other: Incision clean and dry with glue intact. No signs of infection, skin necrosis, dehiscence. Objective Data Vital Signs Vital Signs: Vital Signs - 24 hr 05/08/25 14:40 05/08/25 15:29 05/08/25 16:02 Temperature 97.9 F 97.7 F Pulse Rate 89 70 66 Respiratory Rate 16 12 12 Blood Pressure 140/84 96/60 L 116/77 Pulse Oximetry 98 100 99 Oxygen Delivery Room Air Oxygen Flow Rate 05/08/25 16:56 05/08/25 17:15 05/08/25 18:42 Temperature 97.2 F L 98.0 F Pulse Rate 89 91 84 Respiratory Rate 17 16 16 Blood Pressure 119/78 127/86 82/61 L Pulse Oximetry 97 99 96 Oxygen Delivery Room Air Simple Face Mask Oxygen Flow Rate 10 05/08/25 18:55 05/08/25 19:00 05/08/25 19:04 Temperature Pulse Rate 88 88 Respiratory Rate 16 20 Blood Pressure 91/53 L 95/64 L Pulse Oximetry 96 96 97 Oxygen Delivery Simple Face Mask Simple Face Mask Room Air Oxygen Flow Rate 10 10 05/08/25 19:15 05/08/25 19:30 05/08/25 19:45 Temperature Pulse Rate 88 85 84 Respiratory Rate 16 16 16 Blood Pressure 103/61 99/66 L 101/66 Pulse Oximetry 96 94 95 Oxygen Delivery Room Air Room Air Room Air Oxygen Flow Rate 05/08/25 20:00 05/08/25 20:00 05/08/25 20:15 Temperature 97.3 F L 96.9 F L Pulse Rate 87 85 Respiratory Rate 18 18 Blood Pressure 113/75 118/82 Pulse Oximetry 94 92 Oxygen Delivery Room Air Oxygen Flow Rate 05/08/25 20:55 05/08/25 21:45 05/09/25 00:25 Temperature 97 F L 97 F L 97 F L Pulse Rate 88 81 84 Respiratory Rate 18 18 18 Blood Pressure 103/66 107/62 117/74 Pulse Oximetry 96 94 96 Oxygen Delivery Oxygen Flow Rate 05/09/25 03:28 05/09/25 08:00 05/09/25 08:21 Temperature 96.9 F L Pulse Rate 76 88 Respiratory Rate 18 Blood Pressure 100/58 L 105/73 Pulse Oximetry 94 98 98 Oxygen Delivery Room Air Oxygen Flow Rate 05/09/25 09:35 Temperature Pulse Rate 86 Respiratory Rate 16 Blood Pressure 101/71 Pulse Oximetry 96 Oxygen Delivery Oxygen Flow Rate Intake/Output Intake/Output: Intake & Output 05/06/25 05/07/25 05/08/25 05/09/25 23:59 23:59 23:59 23:59 Intake Total 1500 2210 Output Total 400 700 Balance 1100 1510 Meds/Results Medications: Active Medications Generic Name Dose Route Start Last Admin Trade Name Freq PRN Reason Stop Dose Admin Acetaminophen 500 mg 05/08/25 19:50 Acetaminophen 500 Mg Tablet PO Q6H PRN Pain Rated 1-3 Hydrocodone Bitart/Acetaminophen 1 tab 05/08/25 19:50 Hydrocodone/Acetaminophen (*Crx) 5-325 Mg Tablet PO Q4H PRN Pain Rated 4-6 Hydrocodone Bitart/Acetaminophen 1 tab 05/08/25 19:50 Hydrocodone/Acetaminophen (*Crx) 10-325 Mg Tablet PO Q4H PRN Pain Rated 7-10 Aspirin 81 mg 05/09/25 09:00 05/09/25 08:24 Aspirin 81 Mg Enteric Tablet PO 81 mg DAILY NICK Administration Enoxaparin Sodium 40 mg 05/09/25 09:00 05/09/25 08:24 Enoxaparin 40 Mg/0.4 Ml Syringe SUB-Q 40 mg DAILY NICK Administration Hydrochlorothiazide 25 mg 05/09/25 09:00 Hydrochlorothiazide 25 Mg Tablet PO DAILY NICK Hydromorphone HCl 1 mg 05/08/25 19:50 Hydromorphone Hcl Inj (*Crx) 1 Mg/Ml Syr IV PUSH Q2H PRN Breakthrough Pain Rated 7-10 or NPO Hydromorphone HCl 0.5 mg 05/08/25 19:50 Hydromorphone Hcl Inj (*Crx) 1 Mg/Ml Syr IV PUSH Q2H PRN Breakthrough Pain Rated 4-6 or NPO Lactated Ringer's 1,000 mls @ 100 mls/hr 05/08/25 19:50 05/09/25 08:21 Lr - Lactated Ringers Iv IV CONT 100 mls/hr .Q10H NICK Administration Ibuprofen 800 mg in 200 mls @ 400 mls/hr 05/08/25 19:50 Caldolor 800 Mg/200 Ml IVPB Q6H PRN Breakthrough Pain Rated 1-3 or NPO Piperacillin Sod/Tazobactam 50 mls @ 100 mls/hr 05/08/25 20:00 05/09/25 07:22 Sod 3.375 gm/ Sodium Chloride IVPB 100 mls/hr Q6H NICK Administration Losartan Potassium 100 mg 05/09/25 09:00 Losartan Potassium 50 Mg Tablet PO DAILY NICK Magnesium Oxide 200 mg 05/09/25 09:00 05/09/25 08:23 Magnesium Oxide 200 Mg Tablet PO 200 mg DAILY NICK Administration Metoprolol Succinate 100 mg 05/09/25 09:00 Metoprolol Succinate Ext Rel 50 Mg Tabcr PO QAM NICK Naloxone HCl 0.1 mg 05/08/25 19:50 Naloxone Hcl 0.4 Mg/Ml Vial IV PUSH Q2M PRN Opiate Reversal Ondansetron HCl 4 mg 05/08/25 19:50 Ondansetron Inj 4 Mg/2 Ml Vial IV PUSH Q4H PRN Nausea And Vomiting Polyethylene Glycol 17 gm 05/09/25 09:00 05/09/25 08:23 Polyethylene Glycol 3350 17 Gm Powd.Pack PO 17 gm QAM NICK Administration Rosuvastatin Calcium 10 mg 05/09/25 09:00 05/09/25 08:24 Rosuvastatin 10 Mg Tablet PO 10 mg QAM NICK Administration Radiology Results: ITS Impressions Abdomen/Pelvis CT 05/08/25 16:51 IMPRESSION: 1. Acute diverticulitis. There is no perforation or abscess. 2. Ventral hernia containing small bowel and small amount of fluid and a tiny questionable area of pneumatosis. Correlation for early incarceration is recommended. There are some mildly dilated proximal small bowel loops within the abdomen, early small bowel obstruction is not excluded. 3. Incidental findings above Labs Labs: Laboratory Results - last 24 hr 05/08/25 05/08/25 05/09/25 15:43 16:02 05:57 WBC 13.5 H 14.4 H RBC 5.51 5.10 Hgb 15.5 14.6 Hct 46.1 44.0 MCV 83.7 86.3 MCH 28.1 28.6 MCHC 33.6 33.2 RDW 13.5 13.6 Plt Count 190 170 MPV 10.4 10.8 H Immature Gran % (Auto) 0.4 Neut % (Auto) 61.4 Lymph % (Auto) 24.8 [place] % (Auto) 12.1 H Eos % (Auto) 1.0 Baso % (Auto) 0.3 Lymph # (Auto) 3.35 H [place] # (Auto) 1.6 H Eos # (Auto) 0.1 Baso # (Auto) 0.0 Abs Immat Gran (auto) 0.05 H Absolute Neuts (auto) 8.3 H Absolute Nucleated RBC 0.000 Nucleated RBC % 0.0 Sodium 136 L 136 L Potassium 3.4 4.2 Chloride 101 103 Carbon Dioxide 24 24 Anion Gap 11 9 BUN 23 H 21 H Creatinine 0.91 0.85 Estim Creat Clear Calc Not Reportable 101 Estimated GFR > 60 > 60 Glucose 128 H 149 H Calcium 9.6 9.1 Total Bilirubin 1.1 AST 28 ALT 24 Alkaline Phosphatase 63 Total Protein 7.7 Albumin 4.4 Lipase 62 Urine Color Yellow Urine Appearance Cloudy H Urine pH 6.0 Ur Specific [place] 1.023 Urine Protein Negative Urine Glucose (UA) Negative Urine Ketones Trace H Ur Blood (Man) Negative Urine Nitrate Negative Urine Bilirubin Negative Urine Urobilinogen 0.2 Leukocyte Esterase Rfl Trace H Urine RBC 0-2 Urine WBC 0-5 Ur Squamous Epith Cells None seen Urine Bacteria None seen Urine Casts 0-2
--- NOTE | 2025-05-09 13:49 | PC.NURSE ---
Citlali AVILA notified of bp low 101/71 and holding am bp meds. Will monitor and if bp higher later will give meds
[2025-05-10] MEDS: PIPERACILLIN/TAZOBACTAM SOD 3.375 GM in SODIUM CHLORIDE 0.9% IV 50 ML 100 ML IVPB ×4 (01:41→20:17)
[2025-05-10] MEDS: LACTATED RINGERS 1,000 ML 50 ML IV CONT (05:16)
[2025-05-10 05:32] VITALS: BP 100/63; PULSE 81; RESP 14; TEMP 36.2; O2SAT 99
[2025-05-10 06:40] LABS: Hematocrit 44.5 % (42.0-52.0); Hemoglobin 14.9 g/dL (14.0-18.0); Mean Corpuscular HGB Conc 33.5 g/dl (32-36); Mean Corpuscular Hemoglobin 28.7 pg (26-34); Mean Corpuscular Volume 85.6 fl (80-100); Platelet Count Result 176 k/mm3 (150-375); Red Blood Count 5.20 M/mm3 (4.6-6.20); White Blood Count 18.2 K/mm3 (4.5-10.0)
[2025-05-10 07:03] LABS: Anion Gap 7 mmol/L (4-12); Blood Urea Nitrogen 21 mg/dL (9-20); Calcium 9.0 mg/dL (8.4-10.2); Carbon Dioxide 24 mmol/L (22-30); Chloride 106 mmol/L (98-107); Estimated CRCL calculation 92 ml/min; Estimated Glomerular Filt Rate > 60; Glucose 107 mg/dL (65-110); Potassium 3.9 mmol/L (3.4-5.0); Sodium 137 mmol/L (137-145)
[2025-05-10] MEDS: ENOXAPARIN 40 MG/0.4 ML SYRINGE SUB-Q (10:00)
[2025-05-10] MEDS: ASPIRIN 81 MG ENTERIC TABLET PO (10:00)
[2025-05-10] MEDS: MAGNESIUM OXIDE 200 MG TABLET PO (10:02)
[2025-05-10] MEDS: ROSUVASTATIN 10 MG TABLET PO (10:02)
[2025-05-10 10:08] VITALS: PULSE 81
--- NOTE | 2025-05-10 10:12 | P.PNGS_ITS ---
Progress Note: A&P Assessment and Plan (1) Incarcerated umbilical hernia: Code(s): K42.0 - Umbilical hernia with obstruction, without gangrene Status: Acute Assessment and Plan: * Pod 2 status post open incarcerated 3 cm umbilical hernia repair. Patient is doing very well. Had a BM this morning. Ambulating without assistance. Voiding appropriately. Tolerating clear liquids without nausea or vomiting. Minimal pain, not requiring any pain medication. * WBC 18 today. Continue IV Zosyn. * Continue to monitor with serial abdominal exams and labs. (2) Diverticulitis large intestine w/o perforation or abscess w/o bleeding: Code(s): K57.32 - Diverticulitis of large intestine without perforation or abscess without bleeding Status: Acute Assessment and Plan: WBC 18 today. Patient has no abdominal pain or other symptoms. Tolerating full liquids without nausea or vomiting. No fevers overnight. (3) Hypertension: Qualifiers: Hypertension type: essential hypertension Qualified Code(s): I10 - Essential (primary) hypertension Code(s): I10 - Essential (primary) hypertension Status: Acute Assessment and Plan: Softer BPs noted since surgery. Blood pressure medications still being held. Most recent pressure 100/63. (4) CAROL (obstructive sleep apnea): Code(s): G47.33 - Obstructive sleep apnea (adult) (pediatric) Status: Acute Plan Discussed patient's case and plan of care with Dr. Morel. Subjective Subjective Date/Time Seen: 05/10/25 10:12 Post Op day: 2 (open incarcerated hernia repair) Patient reports: no new complaints, feels better and bowel movement Interval history: Patient is doing very well today. Walked three laps around unit today without a ssistance. Bowel movement this morning. Minimal pain. Voiding without difficulty. Tolerating diet without nausea or vomiting. WBC did jump to 18.2 from 14.4. Exam GI: Inspection: non-distended GI Palp: Yes Soft to palpation and Yes Tenderness to palpation present (GI) (minimal tenderness around incision) Objective Data Vital Signs Vital Signs: Vital Signs - 24 hr 05/09/25 13:17 05/09/25 16:25 05/09/25 20:00 Temperature 96.9 F L 97.9 F Pulse Rate 84 72 80 Respiratory Rate 17 16 13 Blood Pressure 101/71 98/70 L Pulse Oximetry 98 99 97 Oxygen Delivery Room Air 05/09/25 21:35 05/09/25 23:17 05/10/25 05:32 Temperature 97.1 F L 97.1 F L Pulse Rate 80 81 Respiratory Rate 13 14 Blood Pressure 108/59 L 100/63 Pulse Oximetry 97 97 99 Oxygen Delivery Room Air 05/10/25 10:08 Temperature Pulse Rate 81 Respiratory Rate Blood Pressure Pulse Oximetry Oxygen Delivery Intake/Output Intake/Output: Intake & Output 05/07/25 05/08/25 05/09/25 05/10/25 23:59 23:59 23:59 23:59 Intake Total 1500 3901.7 1366.3 Output Total 400 1000 1300 Balance 1100 2901.7 66.3 Meds/Results Medications: Active Medications Generic Name Dose Route Start Last Admin Trade Name Freq PRN Reason Stop Dose Admin Acetaminophen 500 mg 05/08/25 19:50 Acetaminophen 500 Mg Tablet PO Q6H PRN Pain Rated 1-3 Hydrocodone Bitart/Acetaminophen 1 tab 05/08/25 19:50 Hydrocodone/Acetaminophen (*Crx) 5-325 Mg Tablet PO Q4H PRN Pain Rated 4-6 Hydrocodone Bitart/Acetaminophen 1 tab 05/08/25 19:50 Hydrocodone/Acetaminophen (*Crx) 10-325 Mg Tablet PO Q4H PRN Pain Rated 7-10 Aspirin 81 mg 05/09/25 09:00 05/10/25 10:00 Aspirin 81 Mg Enteric Tablet PO 81 mg DAILY NICK Administration Enoxaparin Sodium 40 mg 05/09/25 09:00 05/10/25 10:00 Enoxaparin 40 Mg/0.4 Ml Syringe SUB-Q 40 mg DAILY NICK Administration Hydrochlorothiazide 25 mg 05/09/25 09:00 05/10/25 10:08 Hydrochlorothiazide 25 Mg Tablet PO Not Given DAILY NICK Hydromorphone HCl 1 mg 05/08/25 19:50 Hydromorphone Hcl Inj (*Crx) 1 Mg/Ml Syr IV PUSH Q2H PRN Breakthrough Pain Rated 7-10 or NPO Hydromorphone HCl 0.5 mg 05/08/25 19:50 Hydromorphone Hcl Inj (*Crx) 1 Mg/Ml Syr IV PUSH Q2H PRN Breakthrough Pain Rated 4-6 or NPO Lactated Ringer's 1,000 mls @ 50 mls/hr 05/08/25 19:50 05/10/25 05:16 Lr - Lactated Ringers Iv IV CONT 50 mls/hr .Q20H NICK Administration Ibuprofen 800 mg in 200 mls @ 400 mls/hr 05/08/25 19:50 Caldolor 800 Mg/200 Ml IVPB Q6H PRN Breakthrough Pain Rated 1-3 or NPO Piperacillin Sod/Tazobactam 50 mls @ 100 mls/hr 05/08/25 20:00 05/10/25 10:02 Sod 3.375 gm/ Sodium Chloride IVPB 100 mls/hr Q6H NICK Administration Losartan Potassium 100 mg 05/09/25 09:00 05/10/25 10:08 Losartan Potassium 50 Mg Tablet PO Not Given DAILY NICK Magnesium Oxide 200 mg 05/09/25 09:00 05/10/25 10:02 Magnesium Oxide 200 Mg Tablet PO 200 mg DAILY NICK Administration Metoprolol Succinate 100 mg 05/09/25 09:00 05/10/25 10:08 Metoprolol Succinate Ext Rel 50 Mg Tabcr PO Not Given QAM [facility] Naloxone HCl 0.1 mg 05/08/25 19:50 Naloxone Hcl 0.4 Mg/Ml Vial IV PUSH Q2M PRN Opiate Reversal Ondansetron HCl 4 mg 05/08/25 19:50 Ondansetron Inj 4 Mg/2 Ml Vial IV PUSH Q4H PRN Nausea And Vomiting Polyethylene Glycol 17 gm 05/09/25 09:00 05/10/25 10:09 Polyethylene Glycol 3350 17 Gm Powd.Pack PO Not Given QAM [facility] Rosuvastatin Calcium 10 mg 05/09/25 09:00 05/10/25 10:02 Rosuvastatin 10 Mg Tablet PO 10 mg QAM NICK Administration Radiology Results: ITS Impressions Abdomen/Pelvis CT 05/08/25 16:51 IMPRESSION: 1. Acute diverticulitis. There is no perforation or abscess. 2. Ventral hernia containing small bowel and small amount of fluid and a tiny questionable area of pneumatosis. Correlation for early incarceration is recommended. There are some mildly dilated proximal small bowel loops within the abdomen, early small bowel obstruction is not excluded. 3. Incidental findings above Labs Labs: Laboratory Results - last 24 hr 05/10/25 06:23 WBC 18.2 H RBC 5.20 Hgb 14.9 Hct 44.5 MCV 85.6 MCH 28.7 MCHC 33.5 RDW 13.9 Plt Count 176 MPV 10.8 H Sodium 137 Potassium 3.9 Chloride 106 Carbon Dioxide 24 Anion Gap 7 BUN 21 H Creatinine 0.94 Estim Creat Clear Calc 92 Estimated GFR > 60 Glucose 107 Calcium 9.0
[2025-05-10 14:00] VITALS: BP 124/65; PULSE 95; RESP 15; TEMP 36.4; O2SAT 96
[2025-05-10] MEDS: ACETAMINOPHEN 500 MG TABLET PO (20:30)
[2025-05-10 21:12] VITALS: BP 145/80; PULSE 94; RESP 14; TEMP 36.5; O2SAT 96
[2025-05-11] MEDS: PIPERACILLIN/TAZOBACTAM SOD 3.375 GM in SODIUM CHLORIDE 0.9% IV 50 ML 100 ML IVPB ×2 (02:02→07:57)
[2025-05-11 05:39] VITALS: BP 120/69; PULSE 91; RESP 14; TEMP 36.1; O2SAT 95
[2025-05-11 06:21] LABS: Hematocrit 43.6 % (42.0-52.0); Hemoglobin 14.3 g/dL (14.0-18.0); Mean Corpuscular HGB Conc 32.8 g/dl (32-36); Mean Corpuscular Hemoglobin 28.4 pg (26-34); Mean Corpuscular Volume 86.5 fl (80-100); Platelet Count Result 153 k/mm3 (150-375); Red Blood Count 5.04 M/mm3 (4.6-6.20); White Blood Count 12.0 K/mm3 (4.5-10.0)
[2025-05-11 07:00] LABS: Anion Gap 7 mmol/L (4-12); Blood Urea Nitrogen 15 mg/dL (9-20); Calcium 8.7 mg/dL (8.4-10.2); Carbon Dioxide 25 mmol/L (22-30); Chloride 104 mmol/L (98-107); Estimated CRCL calculation 98 ml/min; Estimated Glomerular Filt Rate > 60; Glucose 109 mg/dL (65-110); Potassium 3.5 mmol/L (3.4-5.0); Sodium 136 mmol/L (137-145)
[2025-05-11] MEDS: ONDANSETRON INJ 4 MG/2 ML VIAL IV PUSH (07:50)
[2025-05-11] MEDS: LOSARTAN POTASSIUM 50 MG TABLET 100 MG PO (07:52)
[2025-05-11] MEDS: MAGNESIUM OXIDE 200 MG TABLET PO (07:52)
[2025-05-11 07:53] VITALS: PULSE 91
[2025-05-11] MEDS: ROSUVASTATIN 10 MG TABLET PO (07:53)
[2025-05-11] MEDS: METOPROLOL SUCCINATE EXT REL 50 MG TABCR 100 MG PO (07:53)
[2025-05-11] MEDS: ASPIRIN 81 MG ENTERIC TABLET PO (07:53)
[2025-05-11] MEDS: ENOXAPARIN 40 MG/0.4 ML SYRINGE SUB-Q (07:57)
--- NOTE | 2025-05-15 14:25 | P.DS_ITS ---
DS: Admitting Diagnosis Discharge Date 05/11/25 Admitting Diagnosis Incarcerated umbilical hernia DS: Discharge Diagnosis Discharge Diagnosis (1) Incarcerated umbilical hernia: Code(s): K42.0 - Umbilical hernia with obstruction, without gangrene Status: Acute (2) Diverticulitis large intestine w/o perforation or abscess w/o bleeding: Code(s): K57.32 - Diverticulitis of large intestine without perforation or abscess without bleeding Status: Acute DS: Summary Hospital Course Reason for hospitalization: This is a 65-year-old man who presented to the emergency department today with periumbilical pain and swelling. He has a known history of an umbilical hernia that has had tenderness at times but was previously reducible. In the emergency department he was found to have an incarcerated umbilical hernia with some purplish discoloration of the skin concerning for possible strangulation. This was unable to be reduced with palpation. A CT abdomen pelvis showed evidence of an incarcerated umbilical hernia containing a loop of small bowel as well as signs of diverticulitis. Discussions were made with the patient about treatment options and decision was made to proceed with incarcerated umbilical hernia repair, possible bowel resection. Hospital Course: Patient presented to the ED on 05/08/2025 with complaints of periumbilical pain. A CT was obtained and demonstrated acute diverticulitis with no perforation or abscess. Also demonstrated was a ventral hernia containing small bowel and small amount of fluid with tiny questionable area of pneumatosis. Mildly dilated proximal small bowel loops within the abdomen, early small-bowel obstruction not excluded. Findings were discussed with the patient in emergent open incarcerated umbilical hernia repair, possible bowel resection was recommended. Procedure, risks, benefits, and alternatives were discussed. Patient was taken to the OR and underwent an open incarcerated 3 cm umbilical hernia repair. There was no evidence of necrotic bowel or perforation on careful exam. Patient tolerated the surgery well and was transferred to recovery after awakened from anesthesia and extubated. On postop day 1 patient was doing very well. Ambulating without assistance, voiding appropriately, tolerating clear liquids without nausea or vomiting. He noted minimal pain and did not require any pain medication. His diet was advanced to full liquids. Patient did have some hypotension so his blood pressure medications were held. Patient was continued on Zosyn for finding of diverticulitis on CT. On POD2 patient's WBC did go up to 18.2. No other symptoms. He remained afebrile. He was continued on the Zosyn. The following day, patient's white blood cell count went back down to 12.0. Minimal abdominal pain. Surgically stable for discharge. He was sent with prescription for oral antibiotics and pain medication. Follow-up as outpatient with Dr. Prieto in 2 weeks. Time Spent with Patient Time attestation: Total time spent providing and/or coordinating discharge services: Time spent: Less than 30 minutes DS: Data Data Completed and Pending Completed studies during hospitalization: Pending at discharge 05/08/25 17:59 Surgical [PTH] Routine Discharge Plan Discharge Attending physician on discharge: Ryder Currie Consulting providers: Carolin Hernandez; Evan Tidwell; Efraín Palmer Jr.; Dakota Kinney Discharging Clinician: Carolin Hernandez Anticipated Discharge Date/Time: 05/11/25 09:02 Patient Disposition: Home Activity: may shower Diet: low fiber Wound Care Instructions: follow printed instructions Discharge Instructions: DISCHARGE INSTRUCTION SHEET FOR ABDOMINAL HERNIA DR. PRIETO PATIENT TO TAKE HOME 1. May shower, no soaking in bath, pool, or other body of water x 2 weeks. 2. Call office for: * Wound increasingly painful or bleeding. Signs of infection - redness, swelling, warmth, pus. * Vomiting * Fever of greater than 101 degrees 3. If no bowel movement for three days, take 1 oz. (30 ml) Milk of Magnesia or MiraLax 17g 1 to 2 times daily. 4. No heavy lifting > 10-15 pounds x 2 weeks. At this point you will see Dr. Prieto in the office and he will determine how much longer these restrictions will be in place. 5. No driving for 3 days or while taking narcotic pain medications. 6. Ice to surgical site for 48 hours (30 min on, then 30 min off). 7. Up walking 10-30 minutes three times per day. 8. Resume previous home medications. 9. Follow-up 10-14 days in office for wound check or as previously scheduled. [phone]) Our office should call you. If you do not hear from them in the next 3 days, call the number provided. 10. Oral pain medications prescription to be sent to pharmacy. Take Tylenol 500mg every 6 hours and Ibuprofen 600mg every 6 hours for the first 2 days, then as needed. 11. NUTRITION: Maintain a low fiber diet for the next two weeks, until otherwise instructed by Dr. Prieto. If nausea or vomiting persists, contact your surgeon?s office. 12. Abdominal Hernias- Wear abdominal binder for the first 2 weeks (may remove to shower or at night to sleep). Revised January 2019 Patient Instructions: Antibiotic Form, Umbilical Hernia (DC), Diverticulitis Diet (DC) Patient Language: Uzbek Stand Alone Forms: General Discharge Information Follow-up/Referrals: Jameel Prieto DO [Physician, General Surgery] - 2 Weeks Referral Note: 2 weeks s/p open umbilical hernia Discharge Medications: New amoxicillin-pot clavulanate 875-125 mg tablet 1 tablet PO Q12H Qty: 10 0RF oxycodone-acetaminophen [Percocet] 5-325 mg tablet 0.5 - 1 tablet PO Q4H PRN (Reason: pain) Qty: 10 0RF Continued coenzyme Q10 [Co Q-10] 10 mg capsule 10 mg PO ONCE magnesium 200 mg tablet 200 mg PO DAILY aspirin 81 mg tablet,delayed release (DR/EC) 81 mg PO DAILY Qty: 1 0RF Rx Instructions: OTC Sang Multivitamin For Men 200-175-250 mcg tablet 1 tablet PO DAILY Qty: 1 0RF Rx Instructions: OTC omega-3 fatty acids 500 mg capsule 500 mg PO DAILY Qty: 1 0RF Rx Instructions: OTC hydrochlorothiazide 25 mg tablet 25 mg PO DAILY Qty: 90 1RF losartan 50 mg tablet See Rx Instructions .ROUTE .COMPLEX Qty: 180 1RF Dose Instruction: TAKE 2 TABLETS BY MOUTH EVERY DAY Rx Instructions: TAKE 2 TABLETS BY MOUTH EVERY DAY metoprolol succinate 50 mg tablet extended release 24 hr See Rx Instructions .ROUTE .COMPLEX Qty: 180 1RF Dose Instruction: TAKE 2 TABLETS BY MOUTH DAILY Rx Instructions: TAKE 2 TABLETS BY MOUTH DAILY rosuvastatin 10 mg tablet See Rx Instructions .ROUTE .COMPLEX Qty: 90 1RF Dose Instruction: TAKE 1 TABLET BY MOUTH EVERY DAY Rx Instructions: TAKE 1 TABLET BY MOUTH EVERY DAY Date of admission: 05/08/25 19:50 Primary Care Provider: Reece Clemente Admitting Provider: Wikiera,Jameel H. Attending physician on admission: Jameel Prieto Condition: Improved
== END 2025-05-11 10:15 | disposition home or self-care (01) | DRG 354 ==
LOC: ANHED 16:37 → ANHSURGERY 16:54 → ANHED 05-10 13:33 → ANH3MEDSUR 05-10 13:34
PROVIDERS: Emergency Medicine; Admitting Provider Surgery; Emergency Provider Student in an Organized Health Care Education/Training Program; PCP Family Medicine; Visit Provider Surgery
PROC: 0WQF0ZZ Repair Abdominal Wall, Open Approach (ICD-10-PCS; principal; 2025-05-08 17:30)
DX: K42.0 Umbilical hernia with obstruction, without gangrene (principal); K57.32 Diverticulitis of large intestine without perforation or abscess without bleeding; K43.9 Ventral hernia without obstruction or gangrene; I95.81 Postprocedural hypotension; I10 Essential (primary) hypertension; G47.33 Obstructive sleep apnea (adult) (pediatric); F10.90 Alcohol use, unspecified, uncomplicated; E78.5 Hyperlipidemia, unspecified; Z86.79 Personal history of other diseases of the circulatory system; Z79.82 Long term (current) use of aspirin; Z87.891 Personal history of nicotine dependence; Z90.49 Acquired absence of other specified parts of digestive tract
CPT/HCPCS: 36415; 74177; 80048; 80053; 81001; 83690; 85025; 85027; 88302; 96361; 96374; 96375; 99285; J0690; A9270; J1100; J1171; J1650; J2003; J2250; J2405; J2543; J2704; J3010; J7030; J7120; Q9967

== ENCOUNTER 2025-05-18 12:29 | Outpatient (CLI) | payer MEDICARE, OTHER, SELFPAY ==
--- NOTE | 2025-05-18 12:37 | ECHO_ITS ---
Patient Info Name: Donavon Espinoza Age: 65 years : 1960 Gender: Male Ht: 73 in Wt: 235 lbs BSA: 2.37 m2 HR: 82 bpm BP: 121 / 74 mmHg Technical Quality: Good Exam Date: 05/18/2025 12:47 PM Patient Status: O Admit Date: 05/18/2025 Exam Type: CA echo doppler color flow Complete two-dimensional, color flow and Doppler transthoracic echocardiogram is performed. Repair Order Clerk: Jennie Villalobos Attending Provider: Lianne Blackman Summary 1. Complete two-dimensional, color flow and Doppler transthoracic echocardiogram is performed. 2. Left ventricular chamber dimension is normal. 3. Left ventricular systolic function is normal, estimated at 60-65. 4. There is moderate concentric increased left ventricular wall thickness. 5. The left ventricular diastolic function is grade I diastolic dysfunction. 6. E/e' 10 is mildly elevated. 7. Left atrial chamber dimension is moderately enlarged. 8. The aortic valve is not well visualized. Cannot determine number of aortic valve leaflets. 9. There is severe aortic valve sclerosis. 10. There is critical aortic valve stenosis with a peak velocity of 612 cm/s, mean gradient of 100 mmHg, and aortic valve area of 0.5 cm2. 11. There is mild aortic valve regurgitation. 12. There is trace mitral valve regurgitation. 13. There is trace tricuspid valve regurgitation. 14. No pulmonary hypertension, estimated pulmonary arterial systolic pressure is 34 mmHg. Left Ventricle E/e' 10 is mildly elevated. Left ventricular chamber dimension is normal. Left ventricular systolic function is normal, estimated at 60-65. There is moderate concentric increased left ventricular wall thickness. The left ventricular diastolic function is grade I diastolic dysfunction. Right Ventricle Right ventricular chamber dimension is normal. Right ventricular systolic function is normal and with normal TAPSE 1.9 cm. Left Atria Left atrial chamber dimension is moderately enlarged. Right Atria Right atrial chamber dimension is normal. Aortic Valve The aortic valve is not well visualized. Cannot determine number of aortic valve leaflets. There is severe aortic valve sclerosis. There is critical aortic valve stenosis with a peak velocity of 612 cm/s, mean gradient of 100 mmHg, and aortic valve area of 0.5 cm2. There is mild aortic valve regurgitation. Pulmonic Valve There is no pulmonic regurgitation. Mitral Valve There is no mitral valve stenosis. There is trace mitral valve regurgitation. Tricuspid Valve There is trace tricuspid valve regurgitation. No pulmonary hypertension, estimated pulmonary arterial systolic pressure is 34 mmHg. Pericardium/Pleural There is no pericardial effusion. Inferior Vena Cava Normal inferior vena cava with >50% collapse upon inspiration consistent with normal right atrial pressure, 5 mmHg. Aorta The aortic root size at the sinus of Valsalva is normal. Left Ventricular Outflow Tract Name Value Normal LVOT 2D LVOT Diameter 2.0 cm LVOT Doppler LVOT Peak Velocity 91 cm/s LVOT Peak Gradient 3 mmHg LVOT Mean Gradient 2 mmHg LVOT VTI 25 cm LVOT VTI/AV VTI Ratio 0.2 LVOT Stroke Volume 79 ml LVOT CO 13.5 l/min LVOT CI 5.7 l/min/m2 Pulmonic Valve Name Value Normal PV Doppler PV Peak Velocity 182 cm/s PV Peak Gradient 13 mmHg Mitral Valve Name Value Normal MV Diastolic Function MV E Peak Velocity 46 cm/s MV A Peak Velocity 72 cm/s MV E/A 0.6 MV Decel Time (PW) 455 ms MV Annular TDI MV E/e' (Septal) 7.9 MV E/e' (Lateral) 14.4 MV E/e' (Average) 11.2 Tricuspid Valve Name Value Normal TV Regurgitation Doppler TR Peak Velocity 268 cm/s TR Peak Gradient 29 mmHg Estimated PAP/RSVP RA Pressure 5 mmHg <=5 PA Systolic Pressure 34 mmHg <36 RV Systolic Pressure 34 mmHg <36 TV Annular TDI TV Lateral Earlene s' Velocity 11.8 cm/s >=9.5 Aorta Name Value Normal Ascending Aorta Ao Root Diameter (MM) 3.8 cm Ao Root Diam Index (MM) 1.6 cm/m2 Aortic Valve Name Value Normal AV Doppler AV Peak Velocity 612 cm/s AV Peak Gradient 144 mmHg AV Mean Gradient 100 mmHg AV VTI 156 cm AV Area (Cont Eq VTI) 0.5 cm2 >=3.0 AV Area (Cont Eq Noel) 0.5 cm2 AV DI (Noel) 0.15 AV Regurgitation 2D LVOT Area 3.2 cm2 Ventricles Name Value Normal LV Dimensions 2D/MM IVS Diastolic Thickness (2D) 1.5 cm 0.6-1.0 LVID Diastole (2D) 4.8 cm 4.2-5.8 LVIW Diastolic Thickness (2D) 1.5 cm 0.6-1.0 LVID Systole (2D) 2.9 cm 2.5-4.0 LVOT Diameter 2.0 cm LV Mass (2D Cubed) 297.58 g 88.00-224.00 LV Mass Index (2D Cubed) 126 g/m2 49-115 Relative Wall Thickness (2D) 0.61 <=0.42 LV Fractional Shortening/Ejection Fraction 2D/MM LV Fractional Shortening (2D) 40 % 25-43 LV EF (2D Teichholz) 70 % LV Diastolic Volume (4C MOD) 101 ml LV EF (4C MOD) 62 % LV Diastolic Volume (2C MOD) 112 ml LV EF (2C MOD) 64 % LV Diastolic Volume (BP MOD) 108 ml 62-150 LV Diastolic Volume Index (BP MOD) 45 ml/m2 34-74 LV Systolic Volume (BP MOD) 41 ml 21-61 LV Systolic Volume Index (BP MOD) 17 ml/m2 11-31 LV EF (BP MOD) 62 % 52-72 LV Diastolic Length (4C) 7.6 cm LV Systolic Length (4C) 6.1 cm LV Stroke Volume (4C MOD) 63 ml RV Dimensions 2D/MM RVID Diastole (2D) 4.2 cm 2.1-3.5 Atria Name Value Normal LA Dimensions LA Dimension (MM) 4.7 cm 3.0-4.0 LA Volume (4C A-L) 75 ml LA Volume (BP A-L) 75 ml RA Dimensions RA Systolic Major Homer Length (4C) 4.7 cm 2.1-2.7 RA Area (4C) 14.8 cm2 <=18.0 Report Signatures
== END 2025-05-18 12:30 | disposition home or self-care (01) ==
LOC: ANHCARD 12:30
PROVIDERS: PCP Family Medicine; Visit Provider Physician Assistant Medical
DX: E78.2 Mixed hyperlipidemia (principal); I10 Essential (primary) hypertension; R01.1 Cardiac murmur, unspecified; I35.1 Nonrheumatic aortic (valve) insufficiency
CPT/HCPCS: 93306